=== PATIENT | male | born 1945 | race Caucasian/White ===

== ENCOUNTER 2020-11-10 04:40 | Inpatient (IN) | payer MEDICARE, OTHER ==
[~2020-11-10] VITALS: Ht 180.3 cm; Wt 81.2 kg
[~2020-11-10 04:40] MED LIST: ASPIR-LOW81 MG PO; AVODART0.5 MG PO; BACTRIM DS TAB1 EACH PO; LEVOTHYROXINE50 MCG PO; TYLENOL WITH C1 EACH PO; detrol PO
[2020-11-10] MEDS ORDERED: SODIUM CHLORIDE 0.9% 1000ML 1,000 ML IV STA (05:30)
[2020-11-10] MEDS ORDERED: ACETAMINOPHEN 325 MG TAB PO ONE (06:00)
[2020-11-10 06:01] LABS: BASOPHILS # (AUTO) 0.1 (0.0-0.1); BASOPHILS % 0.3 % (0.0-1.0); EOSINOPHILS # (AUTO) 0.1 (0.0-0.4); EOSINOPHILS % 0.2 % (0.0-6.0); HEMATOCRIT 49.2 % (38.2-49.6); HEMOGLOBIN 15.9 g/dL (14.0-18.0); LYMPHOCYTES # (AUTO) 1.5 (1.0-3.2); LYMPHOCYTES % 6.6 % (18.0-39.1); MEAN CORPUSCULAR HEMOGLOBIN 30.8 pg (28-32); MEAN CORPUSCULAR HGB CONC 32.3 g/dL (31-35); MEAN CORPUSCULAR VOLUME 95.3 fL (81-99); MONOCYTES # (AUTO) 2.4 (0.2-0.8); MONOCYTES % 10.8 % (4.4-11.3); NEUTROPHILS # (AUTO) 18.5 (2.1-6.9); NEUTROPHILS % 81.3 % (38.7-80.0); PLATELET COUNT 253 x10e3/uL (140-360); RED BLOOD COUNT 5.16 x10e6/uL (4.3-5.7); RED CELL DISTRIBUTION WIDTH 12.1 % (11.7-14.4)
[2020-11-10 06:05] LABS: CLARITY,URINE CLOUDY (CLEAR); COLOR,URINE YELLOW (YELLOW); LEUKOCYTE ESTERASE ,URINE SMALL (NEGATIVE); NITRITE,URINE POSITIVE (NEGATIVE)
[2020-11-10 06:06] LABS: KETONES,URINE NEGATIVE (NEGATIVE); PROTEIN,URINE DIPSTICK TRACE (NEGATIVE); URINE UROBILINOGEN 0.2 mg/dL (0.2 - 1)
[2020-11-10 06:14] LABS: WBC,URINE (MAN) 21-50 /HPF (0-5)
[2020-11-10 06:15] LABS: BACTERIA,URINE MODERATE /HPF; EPITHELIAL CELLS,URINE FEW /LPF; RBC,URINE 0-5 /HPF (0-5)
[2020-11-10 06:30] LABS: ALBUMIN 3.7 g/dL (3.5-5.0); ALBUMIN/GLOBULIN RATIO 0.9 (0.8-2.0); ANION GAP 18.1 mmol/L (8-16); CALCIUM 9.5 mg/dL (8.4-10.2); CREATININE, SERUM 1.23 mg/dL (0.72-1.25); POTASSIUM 4.1 mmol/L (3.5-5.1)
[2020-11-10] MEDS ORDERED: CEFTRIAXONE 1 GM VIAL IV ONE (06:30)
[2020-11-10] MEDS ORDERED: SODIUM CHLORIDE 0.9% 1000ML 1,500 ML IV SCH (06:30)
[2020-11-10] MEDS ORDERED: PIPERACILLIN/TAZO 4.5 GM 100 ML IV STA (07:00)
[2020-11-10 09:15] VITALS: BP 104/49
[2020-11-10] MEDS ORDERED: ASPIRIN 81 MG CHEW TAB PO SCH (09:30)
[2020-11-10] MEDS: PIPERACILLIN/TAZOBACTAM 3.375 GM in SODIUM CHLORIDE 0.9% 50ML 50 ML IV SCH ×2 (10:21→17:05)
[2020-11-10] MEDS: SODIUM CHLORIDE 0.9% 1000ML 1,000 ML IV SCH ×2 (10:21→17:08)
[2020-11-10] MEDS: LEVOTHYROXINE SODIUM 50 MCG TAB PO SCH (10:21)
[2020-11-10 12:01] VITALS: BP 104/58
[2020-11-10] MEDS: ACETAMINOPHEN 325 MG TAB PO PRN (12:33)
[2020-11-10 16:00] VITALS: BP 98/57
[2020-11-10] MEDS: ASPIRIN 81 MG CHEW TAB PO SCH (21:06)
[2020-11-10 22:01] VITALS: BP 98/57
[2020-11-10 22:16] VITALS: BP 99/55
[2020-11-11] VITALS (7 sets, daily range): BP systolic 90–117; BP diastolic 48–61
[2020-11-11] MEDS: PIPERACILLIN/TAZOBACTAM 3.375 GM in SODIUM CHLORIDE 0.9% 50ML 50 ML IV SCH ×3 (03:26→18:00)
[2020-11-11 05:04] LABS: BASOPHILS # (AUTO) 0.1 (0.0-0.1); BASOPHILS % 0.3 % (0.0-1.0); EOSINOPHILS % 0.1 % (0.0-6.0); HEMATOCRIT 37.7 % (38.2-49.6); HEMOGLOBIN 12.4 g/dL (14.0-18.0); LYMPHOCYTES # (AUTO) 1.7 (1.0-3.2); LYMPHOCYTES % 7.5 % (18.0-39.1); MEAN CORPUSCULAR HEMOGLOBIN 31.4 pg (28-32); MEAN CORPUSCULAR HGB CONC 32.9 g/dL (31-35); MEAN CORPUSCULAR VOLUME 95.4 fL (81-99); MONOCYTES # (AUTO) 2.5 (0.2-0.8); MONOCYTES % 11.5 % (4.4-11.3); NEUTROPHILS # (AUTO) 17.3 (2.1-6.9); PLATELET COUNT 185 x10e3/uL (140-360); RED BLOOD COUNT 3.95 x10e6/uL (4.3-5.7); RED CELL DISTRIBUTION WIDTH 12.3 % (11.7-14.4)
[2020-11-11 05:25] LABS: ANION GAP 14.7 mmol/L (8-16); CALCIUM 7.7 mg/dL (8.4-10.2); CREATININE, SERUM 1.15 mg/dL (0.72-1.25); POTASSIUM 3.7 mmol/L (3.5-5.1)
[2020-11-11] MEDS: LEVOTHYROXINE SODIUM 50 MCG TAB PO SCH (05:33)
[2020-11-11] MEDS: ACETAMINOPHEN 325 MG TAB PO PRN (10:40)
[2020-11-11] MEDS: SODIUM CHLORIDE 0.9% 1000ML 1,000 ML IV SCH (14:58)
[2020-11-11] MEDS: ENOXAPARIN SOD INJ 40 MG/0.4 ML SYR SC SCH ×2 (17:00→19:00)
[2020-11-11] MEDS: ASPIRIN 81 MG CHEW TAB PO SCH (20:49)
[2020-11-12] VITALS: BP 103/54
[2020-11-12] MEDS: PIPERACILLIN/TAZOBACTAM 3.375 GM in SODIUM CHLORIDE 0.9% 50ML 50 ML IV SCH ×3 (01:39→17:17)
[2020-11-12] MEDS: SODIUM CHLORIDE 0.9% 1000ML 1,000 ML IV SCH (02:23)
[2020-11-12 04:00] VITALS: BP 123/69
[2020-11-12] MEDS: LEVOTHYROXINE SODIUM 50 MCG TAB PO SCH (05:37)
[2020-11-12 06:27] LABS: BASOPHILS % 0.3 % (0.0-1.0); EOSINOPHILS # (AUTO) 0.2 (0.0-0.4); EOSINOPHILS % 1.5 % (0.0-6.0); HEMATOCRIT 37.6 % (38.2-49.6); HEMOGLOBIN 12.5 g/dL (14.0-18.0); LYMPHOCYTES # (AUTO) 0.7 (1.0-3.2); LYMPHOCYTES % 6.9 % (18.0-39.1); MEAN CORPUSCULAR HEMOGLOBIN 31.7 pg (28-32); MEAN CORPUSCULAR HGB CONC 33.2 g/dL (31-35); MEAN CORPUSCULAR VOLUME 95.4 fL (81-99); MONOCYTES # (AUTO) 0.9 (0.2-0.8); MONOCYTES % 8.5 % (4.4-11.3); NEUTROPHILS # (AUTO) 8.7 (2.1-6.9); NEUTROPHILS % 82.3 % (38.7-80.0); PLATELET COUNT 174 x10e3/uL (140-360); RED BLOOD COUNT 3.94 x10e6/uL (4.3-5.7); RED CELL DISTRIBUTION WIDTH 12.3 % (11.7-14.4)
[2020-11-12 06:35] LABS: ANION GAP 10.7 mmol/L (8-16); CREATININE, SERUM 0.93 mg/dL (0.72-1.25); POTASSIUM 3.7 mmol/L (3.5-5.1)
[2020-11-12 07:40] VITALS: BP 127/91
[2020-11-12 07:46] VITALS: BP 127/91
[2020-11-12 11:24] VITALS: BP 108/56
[2020-11-12 15:28] VITALS: BP 125/62
[2020-11-12] MEDS: ENOXAPARIN SOD INJ 40 MG/0.4 ML SYR SC SCH (17:17)
[2020-11-12] MEDS ORDERED: FLOMAX0.4 MG PO ×2 (17:25→17:28)
[2020-11-12] MEDS ORDERED: CEFUROXIME250 MG PO ×2 (17:27→17:28)
== END 2020-11-12 18:05 | disposition home or self-care (01) | DRG 862 ==
LOC: ER 05:11 → ERHOLD 07:05 → MED/SURG 08:29 → OBSVTOIN 11-11 10:19
PROVIDERS: ADMIT Internal Medicine; ATTEND Internal Medicine
DX: T81.40XA Infection following a procedure, unspecified, initial encounter (principal); A41.50 Gram-negative sepsis, unspecified; R65.21 Severe sepsis with septic shock; E87.2 Acidosis; Z85.51 Personal history of malignant neoplasm of bladder; Z85.89 Personal history of malignant neoplasm of other organs and systems; N40.1 Benign prostatic hyperplasia with lower urinary tract symptoms; R35.0 Frequency of micturition; R33.8 Other retention of urine; N39.41 Urge incontinence; D64.9 Anemia, unspecified; N30.90 Cystitis, unspecified without hematuria
CPT/HCPCS: 36415; 70450; 71045; 74176; 80048; 80053; 81001; 83605; 84443; 85025; 87040; 87086; 87186; 97139; 99284; G0378; J1650; J2543; J7030